=== PATIENT | female | born 1970 | race Two or more races ===

== ENCOUNTER 2018-12-19 11:40 | Outpatient (CLI) | payer OTHER | END 2018-12-19 15:57 | disposition home or self-care (01) | LOC: NUCLEAR 11:40 | DX: I47.1 Supraventricular tachycardia (principal) ==

== ENCOUNTER 2022-06-16 07:24 | Outpatient (CLI) | payer OTHER | END 2022-06-16 07:25 | disposition home or self-care (01) | LOC: NUCLEAR 07:24 | PROVIDERS: ATTEND Internal Medicine Cardiovascular Disease | DX: I25.9 Chronic ischemic heart disease, unspecified (principal) | CPT/HCPCS: 78452; 93017; A9500 ==